=== PATIENT | female | born 1955 | race Caucasian/White ===

== ENCOUNTER 2017-12-30 19:19 | Emergency (ER) | payer OTHER ==
[2017-12-30 19:30] VITALS: BP 108/72; PULSE 84; TEMP 98.2; BMI 22.6
--- NOTE | 2017-12-30 19:46 | PDOC ---
History of Present Illness - History of Present Illness Initial Comments: 12/30/17 20:25 The patient is a 62 year old female, with no significant past medical history, who presents to the emergency department with increased redness and swelling to her right 4th digit since sudden onset of localized redness yesterday morning. She reports waking up yesterday with a small area of redness and swelling, looked like a bruise as she points to her right 4th PIP joint. She states that today, however, the entire 4th finger is red and swollen and she can not remove the ring from her 4th finger. She reports the small area of redness and swelling was painful yesterday, but denies any pain now. She denies numbness or tingling to the digit. She denies injury of the digit. PAST MEDICAL HISTORY: no significant history PAST SURGICAL HISTORY: no significant history FAMILY HISTORY: no pertinent history SOCIAL HISTORY: Pt lives with family and is employed. MEDICATIONS: reviewed ALLERGIES: As per nursing notes ROS: General: No fevers or chills, no weakness, no weight loss HEENT: No change in vision. No sore throat,. No ear pain CardioVascular: No chest pain or shortness of breath Respiratory:No cough, or wheezing. Gastrointestinal: no nausea, vomiting, diarrhea or constipation, No rectal bleeding Genitourinary: No dysuria, hematuria, or frequency Musculoskeletal: No joint or muscle pain or swelling Neurologic: No headache, vertigo, dizziness or loss of consciousness Psychiatric: nor depression Skin: No rashes or easy bruising Endocrine: no increased thirst or abnormal weight change Allergic: no skin or latex allergy All other systems reviewed and normal Physical Exam: GENERAL: The patient is awake, alert, and fully oriented, in no acute distress. HEAD: Normal with no signs of trauma. EYES: Pupils equal, round and reactive to light, extraocular movements intact, sclera anicteric, conjunctiva clear. EXTREMITIES: Normal range of motion, no edema. NEUROLOGICAL: Normal speech, normal gait. PSYCH: Normal mood, normal affect. SKIN: (+) There is redness and swelling diffusely over the 4th digit of her right hand with area of maximum swelling over the PIP joint. The right 4th finger is warm with most warmth over the PIP joint. Mild discomfort on palpation over PIP joint, FUll ROM with mild discomfort. No ascending lymphangitis. No redness or swelling of the hand. The finger is well-perfused. There is good Warm, Dry, normal turgor, no rashes or lesions noted. <Naheed Morales - Last Filed: 12/30/17 20:45> - General History Source: Patient Exam Limitations: No Limitations - History of Present Illness Initial Comments: A portion of this note was documented by scribe services under my direction. I have reviewed the details of the note, within reason, and agree with the documentation. The case summary and management plan written by me. 12/30/17 20:36 Assessment and plan: This is a 62-year-old female comes in complaining of a swollen red right ring finger. Patient's finger was swollen enough that he had to remove the ring by cutting it off. Patient had increased warmth and erythema of the finger but it did not extend beyond the base of the finger into the hand. There was no tenderness or swelling on palpation of the tendon sheath There was a questionable area of a possible source of infection Patient started on Bactrim here in the emergency room and a prescription was sent to her pharmacy <Rodri Weinstein I - Last Filed: 12/30/17 20:47> - General Chief Complaint: Redness To Affected Area Stated Complaint: RT 4TH FINGER REDNESS, SWELLING Time Seen by Provider: 12/30/17 19:26 Past History <Naheed Morales - Last Filed: 12/30/17 20:45> - Past Medical History COPD: No Thyroid Disease: Yes - Suicide/Smoking/Psychosocial Hx Smoking History: Never smoked Have you smoked in the past 12 months: No Hx Alcohol Use: No Drug/Substance Use Hx: No <Rodri Weinstein I - Last Filed: 12/30/17 20:47> - Past Medical History Allergies/Adverse Reactions: Allergies Allergy/AdvReac Type Severity Reaction Status Date / Time Penicillins Allergy Verified 12/30/17 20:41 Home Medications: Ambulatory Orders Levothyroxine [Synthroid -] 75 mcg PO DAILY 12/30/17 Sulfamethoxazole/Trimethoprim [Bactrim DS -] 1 tab PO BID #14 tablet 12/30/17 *Physical Exam - Vital Signs Last Vital Signs Temp Pulse Resp BP Pulse Ox 98.2 F 84 18 108/72 98 12/30/17 19:20 12/30/17 19:20 12/30/17 19:20 12/30/17 19:20 12/30/17 19:20 <Naheed Morales - Last Filed: 12/30/17 20:45> - Vital Signs Last Vital Signs Temp Pulse Resp BP Pulse Ox 98.2 F 84 18 108/72 98 12/30/17 19:20 12/30/17 19:20 12/30/17 19:20 12/30/17 19:20 12/30/17 19:20 <Rodri Weinstein I - Last Filed: 12/30/17 20:47> *DC/Admit/Observation/Transfer - Attestations Scribe Attestion: 12/30/17 20:26 Documentation prepared by Naheed Morales, acting as medical officer psychiatry for Rodri Weinstein MD <Naheed Morales - Last Filed: 12/30/17 20:45> - Discharge Dispostion Admit: No <Rodri Weinstein I - Last Filed: 12/30/17 20:47> Diagnosis at time of Disposition: Cellulitis of right ring finger - Discharge Dispostion Disposition: HOME Condition at time of disposition: Stable - Prescriptions Prescriptions: Sulfamethoxazole/Trimethoprim [Bactrim DS -] 1 tab PO BID #14 tablet - Referrals Referrals: Gerber Gonzalez [Primary Care Provider] - - Patient Instructions Additional Instructions: Take Bactrim 1 tablet twice a day for the next 7 days. Return to the ER if the finger significantly worse within the next 24 hours or you see any red streaks extending up her hand and into your arm. Or if you develop any shaking chills or fevers. The finger should be improved within 48 hours. Tylenol or Motrin as needed for pain Return to the emergency department immediately with ANY new, persistent or worsening symptoms. Continue any medications as previously prescribed by your physician. You should follow up with your primary doctor as soon as possible regarding today's emergency department visit. . Please make sure your doctor reviews the results of your emergency evaluation. Thank you for coming to the Emergency Department today for your care. It was a pleasure to see you today. Please note that your evaluation is INCOMPLETE until you follow-up with your doctor. - Post Discharge Activity
[2017-12-30] MEDS ORDERED: SULFAMETHOXAZOLE/TRIMETHOPRIM 800MG/160MG D.S. TABLET PO ONE (20:34)
[2017-12-30] MEDS ORDERED: SULFAMETHOXAZOLE/TRIMETHOPRIM 800MG/160MG D.S. TABLET ONE (20:39)
== END 2017-12-30 20:52 | disposition home or self-care (01) ==
LOC: FER 19:19
DX: L03.011 Cellulitis of right finger (principal)
CPT/HCPCS: 99282-25